=== PATIENT | male | born 1975 | race Caucasian/White ===

== ENCOUNTER 2019-05-10 13:15 | Emergency (ER) | payer MEDICAID ==
[~2019-05-10] VITALS: Ht 172.7 cm; Wt 67.0 kg
[2019-05-10] MEDS ORDERED: LORAZEPAM 2MG/ML CPJ IV STA (13:59)
[2019-05-10] MEDS ORDERED: OLANZAPINE 10 MG/VIAL IM ONE (14:00)
[2019-05-10 15:05] LABS: BASOPHILS % 0.3 % (0.0-2.0); EOSINOPHILS % 0.1 % (0.0-5.0); HEMATOCRIT. 37.2 % (42.0-52.0); HEMOGLOBIN. 12.6 g/dL (14.0-18.0); LYMPHOCYTES % 15.2 % (20.0-50.0); MEAN CORPUSCULAR HEMOGLOBIN 29.8 pg (28.0-32.0); MEAN CORPUSCULAR VOLUME 88.2 fL (80.0-94.0); MEAN PLATELET VOLUME 7.2 fl (7.4-10.4); MONOCYTES % 12.5 % (2.0-8.0); NEUTROPHILS % 71.9 % (40.0-76.0); PLATELET 282 x1000/uL (130-400); RED BLOOD CELL COUNT 4.22 mill/uL (4.7-6.1); RED CELL DISTRIBUTION WIDTH 14.2 % (11.6-14.6)
[2019-05-10 15:12] LABS: CHLORIDE 104 mEq/L (98-107)
[2019-05-10 15:13] LABS: PROTHROMBIN TIME 10.7 sec (9.6-11.0)
[2019-05-10 15:16] LABS: ETHANOL BLOOD < 10 mg/dL
[2019-05-10 15:20] LABS: CREATINE KINASE 250 IU/L (39-308)
[2019-05-10 15:25] LABS: CLARITY URINE CLOUDY (CLEAR); COLOR URINE DARK YELLOW (YELLOW); KETONES URINE NEGATIVE (NEGATIVE); LEUKOCYTE ESTERASE URINE NEGATIVE (NEGATIVE); NITRITE URINE NEGATIVE (NEGATIVE); OCCULT BLOOD URINE NEGATIVE (NEGATIVE); PROTEIN URINE TRACE (NEGATIVE); SPECIFIC GRAVITY URINE 1.035 (1.005-1.030)
[2019-05-10 15:41] LABS: *AMPHETAMINES SCREEN URINE PRESUMTIVE POSITIVE (NEGATIVE)
[2019-05-10 15:42] LABS: *BARBITURATES SCREEN URINE NEGATIVE (NEGATIVE); *BENZODIAZEPINES SCREEN URINE NEGATIVE (NEGATIVE); *COCAINE SCREEN URINE NEGATIVE (NEGATIVE); METHADONE URINE SCREEN NEGATIVE (NEGATIVE); OPIATES URINE SCREEN NEGATIVE (NEGATIVE); PHENCYCLIDINE URINE SCREEN NEGATIVE (NEGATIVE)
[2019-05-10 15:43] LABS: CANNABINOID URINE SCREEN PRESUMTIVE POSITIVE (NEGATIVE)
[2019-05-10] MEDS ORDERED: SODIUM CHLORIDE 0.9% 1,000 ML IV ONE (19:31)
[2019-05-11 09:14] VITALS: BP 112/62
== END 2019-05-11 09:14 | disposition home or self-care (01) ==
LOC: ER 13:37 → EDBD 13:37 → ER 05-11 09:14
DX: T43.621A Poisoning by amphetamines, accidental (unintentional), initial encounter (principal); R45.1 Restlessness and agitation
CPT/HCPCS: 36415; 80053; 80305; 80307; 80320; 80329; 81003; 82140; 82550; 83605; 84443; 84484; 85025; 85610; 96372; 96374; 99284; J2060; J3490; J7030; Z7610; G0480

== ENCOUNTER 2019-05-11 14:52 | Emergency (ER) | payer MEDICAID ==
[~2019-05-11] VITALS: Ht 177.8 cm; Wt 56.0 kg
[2019-05-11 15:55] LABS: CHLORIDE 107 mEq/L (98-107)
[2019-05-11 15:56] LABS: BASOPHILS % 0.6 % (0.0-2.0); EOSINOPHILS % 0.8 % (0.0-5.0); HEMATOCRIT. 36.7 % (42.0-52.0); HEMOGLOBIN. 12.8 g/dL (14.0-18.0); MEAN CORPUSCULAR HEMOGLOBIN 30.8 pg (28.0-32.0); MEAN CORPUSCULAR VOLUME 88.6 fL (80.0-94.0); NEUTROPHILS % 58.6 % (40.0-76.0); PLATELET 222 x1000/uL (130-400); RED BLOOD CELL COUNT 4.14 mill/uL (4.7-6.1); RED CELL DISTRIBUTION WIDTH 13.8 % (11.6-14.6)
[2019-05-11 16:00] LABS: ETHANOL BLOOD 188 mg/dL
[2019-05-11] MEDS ORDERED: LORAZEPAM 2MG/ML CPJ IV ONE (16:00)
[2019-05-11] MEDS ORDERED: HALOPERIDOL LACTATE 5MG/ML VIAL IM PRN (16:00)
[2019-05-11] MEDS ORDERED: DIPHENHYDRAMINE 50MG/ML VIAL IM ONE (16:00)
[2019-05-11 18:50] LABS: *AMPHETAMINES SCREEN URINE PRESUMTIVE POSITIVE (NEGATIVE); *BARBITURATES SCREEN URINE NEGATIVE (NEGATIVE); *BENZODIAZEPINES SCREEN URINE NEGATIVE (NEGATIVE); *COCAINE SCREEN URINE NEGATIVE (NEGATIVE); METHADONE URINE SCREEN NEGATIVE (NEGATIVE)
[2019-05-11 18:51] LABS: CANNABINOID URINE SCREEN PRESUMTIVE POSITIVE (NEGATIVE); OPIATES URINE SCREEN NEGATIVE (NEGATIVE); PHENCYCLIDINE URINE SCREEN NEGATIVE (NEGATIVE)
[2019-05-12 10:54] VITALS: BP 115/76
== END 2019-05-12 11:05 | disposition home or self-care (01) ==
LOC: ER 14:52
DX: F10.229 Alcohol dependence with intoxication, unspecified (principal); Y90.6 Blood alcohol level of 120-199 mg/100 ml; F19.10 Other psychoactive substance abuse, uncomplicated; M79.662 Pain in left lower leg; F12.90 Cannabis use, unspecified, uncomplicated; Z59.0 Homelessness
CPT/HCPCS: 36415; 70450; 80053; 80305; 80307; 80320; 80329; 85025; 96372; 96374; 99284; J1200; J1630; J2060; Z7610; G0480